=== PATIENT | female | born 1955 | race Caucasian/White ===

== ENCOUNTER → 2020-12-31 15:06 | Outpatient (CLI) | payer OTHER, SELFPAY ==
[2020-12-31 16:17] LABS: COVID19 -Nasal RAPID Negative (Negative)
== END ==
PROVIDERS: PCP Family Medicine; Visit Provider Specialist
DX: Z01.812 Encounter for preprocedural laboratory examination (principal); Z20.822 Contact with and (suspected) exposure to COVID-19
CPT/HCPCS: 87635

== ENCOUNTER 2021-01-01 06:43 | Day surgery (SDC) | payer OTHER, SELFPAY ==
[2020-12-29 13:43] VITALS: BMI 30.2
[2021-01-01] VITALS (16 sets, daily range): BP systolic 99–117; BP diastolic 48–92; PULSE 68–81; RESP 12–22; TEMP 35.9–36.7; O2SAT 93–98; BMI 30.2
[2021-01-01] MEDS: LACTATED RINGERS 1,000 ML 100 ML IV ×3 (07:21→21:18)
--- NOTE | 2021-01-01 07:28 | PM.PREOP ---
Pre-operative Note COVID-19 COVID-19 status: Negative Result date/Date tested (Pos, Neg/Pending): 12/31/20 Interval Note History & Physical reviewed/Exam performed by Physician: Yes Changes to H&P: No
[2021-01-01] MEDS: CEFAZOLIN 1 GM VIAL 2 GM IV (08:00)
--- NOTE | 2021-01-01 08:15 | SUR.OPER ---
Lithotomy on padded OR bed, head on pillow, arms secured on padded arm boards at <90 degrees abduction. Legs secured in padded yellow fins stirrups.
[2021-01-01] MEDS: BUPIVACAINE 0.5% (PF) VIAL 30 ML INJ (08:21)
--- NOTE | 2021-01-01 09:10 | PM.OP.1 ---
Operative Date/Time/Diagnoses Date of procedure: 01/01/21 Time of procedure: 09:10 Pre-op diagnosis: Symptomatic cystocele Post-op diagnosis: same Procedure & Clinicians Procedure: Anterior repair with sacrospinous ligament fixation Same procedure as scheduled: No (Vaginal vault prolapse detected at time of surgery) Surgeon: Kayla Cullen Click Yes if Unassisted: Yes Anesthesia Type: General Operative Notes Findings: Cystocele with inclusion cyst on the anterior vaginal wall, vaginal vault prolapse Closure Type: primary Specimen(s): none sent Applied: catheter (Rivera) and other (Vaginal packing) Estimated Blood Loss (mL): 40 Blood products transfused: none Procedure in detail: Patient was brought to the operating room where she underwent general anesthesia. She was placed in low Yellofin stirrups and prepped and draped in the usual sterile fashion. Warming was in place. 2 g of Ancef were in prior to beginning of the case. Pulsatile stockings were in place and functional. A check system was reviewed with the staff in the room prior to beginning the case. A Rivera catheter was placed. The area of the cystocele was injected with a dilute solution of Marcaine with epinephrine. Incision was made over the cystocele with a scalpel. Dissection was undertaken laterally with sharp and blunt dissection. Plicating sutures of 0 Vicryl suture were placed followed by a layer of 2 0 Vicryl plicating sutures. The vaginal incision was repaired with running 2 0 Vicryl suture. An incision was made in the posterior vaginal wall after injecting with a dilute solution Marcaine with epinephrine with a scalpel. Dissection was undertaken laterally. 0 Prolene suture with the Capio passer was placed through the uterosacral ligament on the right side and sutured to the underside of the vaginal cuff. A finger was placed in the rectum to be sure there were no sutures placed through the rectal mucosa. The uterosacral suture was tightened down and the vaginal incision was closed with 2-0 Vicryl suture. Vaginal packing was placed in the vagina and the Rivera left in place. Patient went to recovery room in good condition. Complications: none Post-operative Condition: stable Disposition: Acute Care Plan for aftercare: Vaginal packing and Rivera will be left in until a.m.. Postvoid residual will be checked after packing and Rivera removed prior to discharge.
[2021-01-01] MEDS: KETOROLAC 30 MG/ML VIAL IV ×3 (11:20→21:15)
[2021-01-01 11:57] LABS: Add Manual Diff / Slide Review NO; Basophils Absolute Auto 100 /uL (0-100); Basophils Percent Auto 0.6 % (0-2); Eosinophils Absolute Auto 0 /uL (0-450); Eosinophils Percent Auto 0.1 % (2-4); Hematocrit 36.3 % (36-46); Hemoglobin 12.1 g/dL (12.0-16.0); Lymphocytes Absolute Auto 700 /uL (1100-4500); Lymphocytes Percent Auto 6.5 % (25-40); Mean Corpuscular HGB Conc 33.4 % (30-36); Mean Corpuscular Hemoglobin 31.2 PG (26-34); Mean Corpuscular Volume 93.2 fL (80-100); Monocytes Absolute Auto 100 /uL (0-900); Monocytes Percent Auto 1.3 % (3-14); Neutrophils Absolute Auto 9700 /uL (1500-7000); Neutrophils Percent Auto 91.5 % (50-75); Platelet Count 280 X10^3/uL (150-400); Red Blood Cell Count 3.89 X10^6/uL (4.0-5.2); Red Cell Distribution Width 13.7 % (11.6-14.8); White Blood Cell Count 10.6 X10^3/uL (4.5-11.0)
[2021-01-01 12:19] LABS: Estimated Glomerular Filt Rate > 60.0 mL/min (>60)
--- NOTE | 2021-01-01 14:36 | PC.NURSE ---
Pt received to room this a.m. prior to 10a.m. Alert awake, and OX3. Denies pain. Rivera in place, draining clear light yellow urine. Vaginal packing intact with out drainage on peripad. Pt with minimal swelling to labia. LS CTA, VSS on RA. LR at 100ml/hr. Pt able to advance diet to general diet well without any n/v. LS CTA, abdomen SNT +BS x4.RT at bedside assessing CPAP machine. Per MD orders cleared for CPAP use i
[2021-01-01] MEDS: DOCUSATE 250 MG CAPSULE PO (21:15)
[2021-01-01] MEDS: ALPRAZolam 0.25 MG TABLET PO (23:46)
[2021-01-02] MEDS: KETOROLAC 30 MG/ML VIAL IV (03:57)
--- NOTE | 2021-01-02 04:16 | PC.NURSE ---
Patient having very minimal pain, 07/26 just starting around 0330. Zoie pad was changed around 2330 at beginning of my shift. Zoie pad checked, no drainage at this time 0400. Emptied auguste of clear yellow UOP 825Ml. Slight drainage at 2330 on zoie pad. No blood noted. Using her cpap prn.
[2021-01-02 04:30] VITALS: BP 119/82; PULSE 62; RESP 16; TEMP 36.2; O2SAT 96
[2021-01-02] MEDS: LEVOTHYROXINE 112 MCG TABLET PO (06:26)
[2021-01-02] MEDS: LACTATED RINGERS 1,000 ML 100 ML IV (06:44)
[2021-01-02 07:30] VITALS: O2SAT 97
--- NOTE | 2021-01-02 08:38 | P.DS_ITS ---
History of Present Illness History of Present Illness Date Patient Seen: 01/02/21 Time Patient Seen: 08:39 Date of Onset of Symptoms: 01/01/21 Chief complaint: OPB Narrative: Patient underwent a anterior repair with sacrospinous ligament fixa tion on 01/01/2021. Her vaginal packing and Rivera catheter removed this morning. Patient has minimal pain. Discharge Providers Provider Discharge Date: 01/02/21 Primary care physician: Ritchie Griggs MD Consults: 01/01/21 07:36 Consult to Respiratory Therapy Evaluate & Treat Comment: Physician Instructions: Evaluate and treat 01/01/21 10:01 Consult to Respiratory Therapy Evaluate & Treat Comment: Patient with CPAP Physician Instructions: Evaluate and treat Discharge provider: Kayla Cullen MD Summary Hospital Course Discharge Diagnosis: Symptomatic cystocele with vaginal apex prolapse Hospital Course: Patient underwent an anterior repair with sacrospinous ligament fixation on 01/01/2021. She is doing well. She will be discharged home after postvoid residual check. Status at Discharge Cognitive/behavioral status at discharge: oriented Functional status at discharge: independent ambulation Overall status at discharge: patient is progressing back to baseline Exam Vital Signs (past 8 hours): - 01/02/21 04:30 Temperature 97.2 F L Pulse Rate 62 Respiratory Rate 16 Blood Pressure 119/82 Pulse Oximetry 96 Oxygen Delivery Method Room Air,CPAP Oxygen Flow Rate 0 Narrative Exam Narrative: Abdomen is soft, nontender. External genitalia are normal. Minimal blood on vaginal packing. Extremities without edema and nontender. Objective Labs Result Diagrams: 01/01/21 11:49 01/01/21 11:49 Labs: Laboratory Results - last 24 hr 01/01/21 01/01/21 11:49 11:49 WBC 10.6 RBC 3.89 L Hgb 12.1 Hct 36.3 MCV 93.2 MCH 31.2 MCHC 33.4 RDW 13.7 Plt Count 280 Neut % (Auto) 91.5 H Lymph % (Auto) 6.5 L Dewitt % (Auto) 1.3 L Eos % (Auto) 0.1 L Baso % (Auto) 0.6 Neut # (Auto) 9700 H Lymph # (Auto) 700 L Dewitt # (Auto) 100 Eos # (Auto) 0 Baso # (Auto) 100 Creatinine 0.66 Estimated GFR > 60.0 [facility] Medical History (Updated 01/01/21 @ 07:27 by Marija Hoover, RN) Anxiety Back pain Bruises easily Depression Hypothyroid Joint pain Sleep apnea with use of continuous positive airway pressure (CPAP) Urinary incontinence Wears hearing aid in both ears Surgical History (Updated 01/01/21 @ 07:29 by Marija Hoover, RN) History of hysterectomy (~2002) History of laparoscopy History of laparotomy (~1979) History of third molar tooth extraction Status post hysterectomy Status post laparoscopy Social History household members: spouse Smoking Status: Never smoker alcohol intake: current Discharge Assessment & Plan Assessment and Plan Assessment: Postoperative anterior repair with sacrospinous ligament fixation. Plan of Treatment: Home after postvoid residual check. Discharge Plan Discharge Plan Patient Disposition: Home Discharge orders & Medications Discharge Orders: Discharge (Order); Ordered 01/02/21 Ordered By: Kayla Cullen Prescriptions: Continued citalopram 20 mg tablet See Rx Instructions .ROUTE .COMPLEX Qty: 90 RF: 3 estradiol 1 mg tablet See Rx Instructions .ROUTE .COMPLEX Qty: 90 RF: 3 levothyroxine 112 mcg capsule 112 mcg PO DAILY RF: 0 hydrocodone-acetaminophen 5-325 mg tablet 1 tab PO Q4-6H PRN (Reason: pain) Qty: 30 RF: 0 alprazolam 0.25 mg tablet 0.25 mg PO Q12HP PRN (Reason: anxiety) Qty: 30 RF: 0 pramipexole 0.5 mg Tablet 0.5 mg PO BEDTIME PRN (Reason: rls) RF: 0 Follow up/Referrals: Kayla Cullen MD [Physician] - 2 Weeks Ritchie Griggs MD [Primary Care Provider] - Diet/Activity/Treatments Diet: Regular Activity: Nothing in vagina or lifting over 20 lb for 6 weeks Skin/Wound/Dressing Care Report to your healthcare provider any signs of infection, such as:: chills, fever and increased pain Visit Report/Discharge Packet Instructions: DI for Cystocele and Rectocele Repair, DI for Constipation Discharge Data Primary Care Provider: Ritchie Griggs Attending Provider: Kayla Cullen Quality VTE Deep Vein Thrombosis/Pulmonary Embolism Present on Admission: No
[2021-01-02 08:45] VITALS: BP 110/77; PULSE 65; RESP 16; TEMP 36.2; O2SAT 98
[2021-01-02 08:58] VITALS: PULSE 79; RESP 16; O2SAT 98
[2021-01-02] MEDS: estradioL 1 MG TABLET PO (09:20)
[2021-01-02] MEDS: DOCUSATE 250 MG CAPSULE PO (09:20)
[2021-01-02] MEDS: ACETAMINOPHEN 325 MG TABLET 650 MG PO (09:26)
--- NOTE | 2021-01-02 11:16 | CM.DANOTE ---
DCP: Case received, EMR reviewed and met with patient. Introduced self and role. Was able to obtain information from patient regarding her baseline activity status prior to hospitalization. DCP assessment completed with information currently available. Patient is a 65 year old female who admitted yesterday morning to the care of the [facility] team. PCP: Dr. Griggs. Payer: confirmed: [employer]. Patient came to the hospital via private vehicle for a surgical procedure. She had anterior repair with sacrospinous ligament fixation. Patient had symptomatic cystole. Met with patient in her room. She is pleasant, alert and oriented. She was sitting up in bed, she had her surgical procedure yesterday. She resides in [facility] with her spouse, Caio. She is independent at her baseline. 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 Patient stated, she should be going home today, hopefully without the catheter. If patient is unable to void, she will go home with catheter and have removed at OB office. She is continue to increase her fluids. P: Patient is to be discharged home today, and will follow up with her [facility] physician. Fallon Lo RN/[employer]
--- NOTE | 2021-01-02 14:26 | PC.NURSE ---
Discharge: Pt feels ready to d/c home. Voided 450mls and had a PVR of 30mls. Just prior to leaving pt voided 500mls. Not scanned then. Pt is tolerating diet w/out problems. Plain tylenol for pain has been effective. Scant vag flow since packing removed. Reviewed d/c packet. Pt already has rx for pain meds and spouse picked up the prescription. Questions answered. Pt d/c home via auto w/spouse.
== END 2021-01-02 12:30 | disposition home or self-care (01) ==
LOC: OR 06:45 → AC 06:46
PROVIDERS: PCP Family Medicine; Referring Provider Specialist; Visit Provider Specialist
PROC: (CPT 57282; principal; 2021-01-01 07:45)
DX: N81.11 Cystocele, midline (principal); N99.3 Prolapse of vaginal vault after hysterectomy; N89.8 Other specified noninflammatory disorders of vagina; F32.9 Major depressive disorder, single episode, unspecified; E03.9 Hypothyroidism, unspecified
CPT/HCPCS: 57282; 57240; 36415; 82565; 85025; 94760; J0690; J1100; J1885; J2250; J2405; J2704; J3010